=== PATIENT | male | born 2000 | race African-American/Black ===

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

== ENCOUNTER 2019-07-24 21:27 | Emergency (ER) | payer BC, SELFPAY ==
[2019-07-24] MEDS ORDERED: LIDOCAINE VISCOUS 2% SOLN 15 ML UDC ONE (22:39)
[2019-07-24] MEDS ORDERED: CLINDAMYCIN HCL 150 MG CAP ONE (23:14)
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
[2019-07-24 23:52] VITALS: TEMP 98.9; O2SAT 100
[2019-07-24 23:53] VITALS: BP 123/71
== END 2019-07-24 23:19 | disposition home or self-care (01) ==
LOC: ER 21:27
PROC: 0CQ0XZZ Repair Upper Lip, External Approach (ICD-10-PCS; principal; 2019-07-24)
DX: S01.511A Laceration without foreign body of lip, initial encounter (principal); Y04.2XXA Assault by strike against or bumped into by another person, initial encounter; Y93.9 Activity, unspecified; Y92.9 Unspecified place or not applicable
CPT/HCPCS: 99284